=== PATIENT | female | born 1990 | race African-American/Black ===

== ENCOUNTER 2017-11-15 05:48 | Emergency (ER) | payer BC, OTHER ==
[~2017-11-15] VITALS: Ht 167.6 cm; Wt 86.2 kg
[2017-11-15 07:49] VITALS: BP 144/85
== END 2017-11-15 09:46 | disposition left against medical advice (07) ==
LOC: ER 05:48
DX: Z53.21 Procedure and treatment not carried out due to patient leaving prior to being seen by health care provider (principal)
CPT/HCPCS: 87070; 87430

== ENCOUNTER 2019-04-06 13:06 | Emergency (ER) | payer OTHER ==
[~2019-04-06] VITALS: Ht 167.6 cm; Wt 109.0 kg
[2019-04-06 14:30] LABS: HEMATOCRIT. 40.1 % (36.0-48.0); HEMOGLOBIN. 13.6 g/dL (12.0-16.0); MEAN CORPUSCULAR HEMOGLOBIN 30.6 pg (28.0-32.0); MEAN CORPUSCULAR VOLUME 90.3 fL (81.0-99.0); MEAN PLATELET VOLUME 9.2 fl (7.4-10.4); PLATELET 174 x1000/uL (130-400); RED BLOOD CELL COUNT 4.44 mill/uL (4.2-5.4); RED CELL DISTRIBUTION WIDTH 13.6 % (11.6-14.6)
[2019-04-06 14:37] LABS: CHLORIDE 105 mEq/L (98-107)
[2019-04-06 14:50] LABS: PLATELET ESTIMATE NORMAL
[2019-04-06 14:50] LABS: CLARITY URINE CLOUDY (CLEAR); COLOR URINE YELLOW (YELLOW); KETONES URINE TRACE (NEGATIVE); NITRITE URINE NEGATIVE (NEGATIVE); OCCULT BLOOD URINE NEGATIVE (NEGATIVE); PH URINE 5.5 (4.5-8.0); PROTEIN URINE NEGATIVE (NEGATIVE); SPECIFIC GRAVITY URINE 1.025 (1.005-1.030)
[2019-04-06 14:51] LABS: LEUKOCYTE ESTERASE URINE 2+ (NEGATIVE); UROBILINOGEN URINE 0.2 E.U./dL (0.2-1.0)
[2019-04-06 15:30] VITALS: BP 126/82
== END 2019-04-06 16:30 | disposition home or self-care (01) ==
LOC: ER 13:06
DX: R10.9 Unspecified abdominal pain (principal); N39.0 Urinary tract infection, site not specified; R21 Rash and other nonspecific skin eruption; Z98.890 Other specified postprocedural states; Z88.1 Allergy status to other antibiotic agents
CPT/HCPCS: 36415; 81003; 81025; 93005; 99284